=== PATIENT | female | born 1975 | race Caucasian/White ===

== ENCOUNTER 2016-09-25 04:58 | Day surgery (SDC) | payer MEDICAID ==
[~2016-09-25 04:58] MED LIST: ADULT LOW DOSE81 M1 PO; ALEVE220 M3 PO; ALPRAZOLAM0.5 M3 PO; AMLODIPINE BESYL5 MG PO; BACTRIM DS TAB1 EAC2 PO; BENTYL10 M1 PO; CLARITIN10 M8 PO; CLOBETASOL 0.0560 GM TP; CLOMID50 MG PO; COLACE100 M1 PO; CYCLOBENZAPRINE10 M1 PO; DIALYVITE 8001 EAC1; ESCITALOPRAM OX10 M1 PO; ESOMEPRAZOLE MA40 MG PO; FAMOTIDINE40 M3 PO; FERROUS GLUCON324 M1 PO; FERROUS GLUCON325 M3 PO; GABAPENTIN300 M1 PO; HYDROCODON-ACE1 EA16 PO; HYOSCYAMINE0.125 M2 PO; LORAZEPAM1 M1 PO; LORTAB 5-325 M1 EAC1 PO; METHOCARBAMOL750 MG PO; MONTELUKAST SOD10 M2 PO; NEURONTIN300 M1 PO; NORCO 5/325 TAB1 TAB PO; ONDANSETRON HCL4 M2 PO; OSCIMIN SR0.375 MG PO; OXYCODONE-ACET1 EAC3 PO; OXYCONTIN20 M2 PO; PERCOCET 5-3251 EACH PO; PLAVIX75 M1 PO; PROMETHAZINE HC25 M3 PO; ROCALTROL0.25 MC1 PO; ROXICODONE5 M2 PO; SENSIPAR30 M1 PO; SERTRALINE HCL50 M4 PO; SULFASALAZINE500 MG PO; TIROSINT75 MC1 PO; TRAMADOL HCL50 M2 PO; VIRT PO; VITAMIN D350000 UNI1 PO; [UNRECOGNIZED DRUG - OTHER] PR; [UNRECOGNIZED DRUG - REMARK]
[2016-09-25 10:33] LABS: BASO % 0.1 % (0-2); EOS % 0.1 % (0-7); HCT-HEMATOCRIT 31.9 % (34.0-49.0); HGB-HEMOGLOBIN 10.4 gm/dl (12.0-15.5); IMMATURE GRANULOCYTES ABSOLUTE 0.04 tho/cmm (0-0.03); IMMATURE GRANULOCYTES PERCENT 0.3 % (0-0.3); LYMPH % 5.4 % (20-45); LYMPH ABSOLUTE COUNT 0.8 tho/cmm (0.8-4.5); MCH (MEAN CORPUSCULAR HGB) 29.3 pg (28.0-32.0); MCHC MEAN CORPUSCULAR HGB CONC 32.6 % (32.0-36.0); MCV (MEAN CELL VOLUME) 89.9 fl (82.0-96.0); MEAN PLATELET VOLUME 12.3 cmc (9.4-12.4); MONO % 2.7 % (0-12); MONOCYTE ABSOLUTE COUNT 0.4 tho/cmm (0.0-1.2); NEUTROPHIL ABSOLUTE COUNT 12.9 tho/cmm (1.6-8.0); NEUTROPHIL-AUTOMATED 12.9 tho/cmm (1.6-8.0); NEUTROPHILS % 91.4 % (40-80); PLATELET COUNT 226 tho/cmm (150-450); RED BLOOD COUNT 3.55 mil/cmm (4.00-5.20); RED CELL DISTRIBUTION WIDTH 12.8 % (12.4-16.4); WHITE BLOOD COUNT 14.1 tho/cmm (4.0-10.0)
[2016-09-25 10:46] LABS: ALB/GLOB RATIO 0.8 (0.8-2.0); ALBUMIN 2.8 g/dl (3.5-5.0); ALKALINE PHOSPHATASE 104 U/L (33-138); ALT/SGPT 26 U/L (12-78); ANION GAP 13 mmol/L (0-20); AST/SGOT 15 U/L (10-40); BILIRUBIN,TOTAL 0.2 mg/dl (0-1.5); BLOOD UREA NITROGEN 18 mg/dl (6-24); CALCIUM 7.2 mg/dl (8.5-10.5); CARBON DIOXIDE-VENOUS 23 mmol/L (22-32); CHLORIDE 112 mmol/l (96-110); CREATININE 2.02 mg/dl (0.50-1.10); GLUCOSE 96 mg/dL (70-110); POTASSIUM 3.9 mmol/L (3.7-5.1); SODIUM 144 mmol/L (135-145); eGFR VALUE FOR BLACK 35 mL/Min
[2016-09-26 07:00] LABS: BASO % 0.2 % (0-2); EOS % 1.9 % (0-7); EOSINOPHIL ABSOLUTE COUNT 0.2 tho/cmm (0.0-0.7); HCT-HEMATOCRIT 31.3 % (34.0-49.0); HGB-HEMOGLOBIN 9.9 gm/dl (12.0-15.5); IMMATURE GRANULOCYTES ABSOLUTE 0.03 tho/cmm (0-0.03); IMMATURE GRANULOCYTES PERCENT 0.2 % (0-0.3); LYMPH % 11.6 % (20-45); LYMPH ABSOLUTE COUNT 1.4 tho/cmm (0.8-4.5); MCH (MEAN CORPUSCULAR HGB) 28.9 pg (28.0-32.0); MCHC MEAN CORPUSCULAR HGB CONC 31.6 % (32.0-36.0); MCV (MEAN CELL VOLUME) 91.3 fl (82.0-96.0); MEAN PLATELET VOLUME 12.7 cmc (9.4-12.4); MONO % 8.6 % (0-12); NEUTROPHIL ABSOLUTE COUNT 9.3 tho/cmm (1.6-8.0); NEUTROPHIL-AUTOMATED 9.3 tho/cmm (1.6-8.0); NEUTROPHILS % 77.5 % (40-80); PLATELET COUNT 239 tho/cmm (150-450); RED BLOOD COUNT 3.43 mil/cmm (4.00-5.20)
[2016-09-26 07:16] LABS: ALBUMIN 2.6 g/dl (3.5-5.0); ANION GAP 10 mmol/L (0-20); BLOOD UREA NITROGEN 20 mg/dl (6-24); CALCIUM 7.8 mg/dl (8.5-10.5); CARBON DIOXIDE-VENOUS 27 mmol/L (22-32); CHLORIDE 109 mmol/l (96-110); GLUCOSE 91 mg/dL (70-110); PHOSPHOROUS 2.6 mg/dl (2.5-4.9); POTASSIUM 4.1 mmol/L (3.7-5.1); SODIUM 142 mmol/L (135-145); eGFR VALUE FOR BLACK 34 mL/Min
[2016-09-27] MEDS ORDERED: PERCOCET 5-3251 EACH PO (11:46)
[2016-09-27] MEDS ORDERED: TYLENOL325 M2 PO (11:48)
[2016-09-27] MEDS ORDERED: SODIUM BICARBO650 M1 PO (11:50)
[2016-09-27] MEDS ORDERED: SENOKOT-S TABL1 EACH PO (11:56)
[2016-09-27] MEDS ORDERED: COMPAZINE10 MG PO (11:58)
== END 2016-09-27 13:40 ==
LOC: SRG 04:58 → SHSC 04:59 → PACU 09:21 → 5EC 10:50
PROVIDERS: Orthopaedic Surgery Foot and Ankle Surgery
PROC: 0Y6N0Z9 Detachment at Left Foot, Partial 1st Ray, Open Approach (ICD-10-PCS; principal; 2016-09-25)
PROC: 0Y6N0ZB Detachment at Left Foot, Partial 2nd Ray, Open Approach (ICD-10-PCS; 2016-09-25)
PROC: 0Y6N0ZC Detachment at Left Foot, Partial 3rd Ray, Open Approach (ICD-10-PCS; 2016-09-25)
PROC: 0Y6N0ZD Detachment at Left Foot, Partial 4th Ray, Open Approach (ICD-10-PCS; 2016-09-25)
PROC: 0Y6N0ZF Detachment at Left Foot, Partial 5th Ray, Open Approach (ICD-10-PCS; 2016-09-25)
PROC: 0L8T0ZZ Division of Left Ankle Tendon, Open Approach (ICD-10-PCS; 2016-09-25)
PROC: 0LXP0ZZ Transfer Left Lower Leg Tendon, Open Approach (ICD-10-PCS; 2016-09-25)
DX: M21.172 Varus deformity, not elsewhere classified, left ankle (principal); N19 Unspecified kidney failure; G43.909 Migraine, unspecified, not intractable, without status migrainosus; G89.29 Other chronic pain; F41.9 Anxiety disorder, unspecified; F32.9 Major depressive disorder, single episode, unspecified; Z99.2 Dependence on renal dialysis; J30.9 Allergic rhinitis, unspecified; E03.9 Hypothyroidism, unspecified; E55.9 Vitamin D deficiency, unspecified; Z90.49 Acquired absence of other specified parts of digestive tract; K21.9 Gastro-esophageal reflux disease without esophagitis; Z91.040 Latex allergy status; Z98.890 Other specified postprocedural states; Z88.0 Allergy status to penicillin; Z89.432 Acquired absence of left foot; Z79.899 Other long term (current) drug therapy; Z79.891 Long term (current) use of opiate analgesic
CPT/HCPCS: G8978-GP-CJ; G8979-GP-CJ; G8980-GP-CJ; J1170; J1200; J2250; J2270; J2405; J3010; J3370; J7030